=== PATIENT | female | born 1990 | race Caucasian/White ===

== ENCOUNTER 2016-09-08 23:47 | Inpatient (IN) | payer MEDICAID ==
[2016-09-09] MEDS ORDERED: DINOPROSTONE 10 MG VAGINAL INSERT.SR PV PRN (00:02)
[2016-09-09] MEDS ORDERED: RINGERS SOLUTION,LACTATED 1,000 ML IV PRN ×2 (00:30→15:16)
[2016-09-09] MEDS ORDERED: RINGERS SOLUTION,LACTATED 300 ML IV ONE ×2 (00:30→15:16)
[2016-09-09 00:40] LABS: ABSOLUTE EOSINOPHILS # (AUTO) 0.2 10^3/uL (0.0-0.6); ABSOLUTE LYMPHOCYTES (AUTO) 1.7 10^3/uL (0.5-4.7); ABSOLUTE MONOCYTES (AUTO) 0.6 10^3/uL (0.1-1.4); ABSOLUTE NEUT (AUTO) 4.8 10^3/uL (1.7-8.2); BASOPHILS % (AUTO) 0.6 % (0-2); EOSINOPHILS % (AUTO) 2.9 % (0-6); HEMATOCRIT 34.7 % (36.0-47.0); HEMOGLOBIN 11.4 g/dL (12.0-15.5); HGB HCT DIFFERENCE -0.5; LYMPHOCYTES % (AUTO) 23.2 % (13-45); MEAN CORPUSCULAR HEMOGLOBIN 32.2 pg (27.0-33.4); MEAN CORPUSCULAR HGB CONC 32.7 g/dL (32.0-36.0); MEAN CORPUSCULAR VOLUME 98 fl (80-97); MONOCYTES % (AUTO) 8.5 % (3-13); RED BLOOD COUNT 3.54 10^6/uL (3.72-5.28); RED CELL DISTRIBUTION WIDTH 14.1 % (11.5-14.0); SEGMENTED NEUTROPHILS % (AUTO) 64.8 % (42-78); WHITE BLOOD COUNT 7.4 10^3/uL (4.0-10.5)
[2016-09-09 01:15] LABS: APPEARANCE,URINE SLIGHTLY-CLOUDY; BILIRUBIN,URINE NEGATIVE (NEGATIVE); GLUCOSE, URINE NEGATIVE (NEGATIVE); KETONES,URINE NEGATIVE (NEGATIVE); LEUKOCYTE ESTERASE,URINE SMALL (NEGATIVE); NITRITE,URINE NEGATIVE (NEGATIVE); PROTEIN,URINE NEGATIVE (NEGATIVE); URINE SPECIFIC GRAVITY 1.021
[2016-09-09] MEDS ORDERED: DINOPROSTONE 10 MG VAGINAL INSERT.SR ONE (01:26)
[2016-09-09 01:32] LABS: URINE BARBITURATES SCREEN NEGATIVE; URINE METHADONE SCREEN NEGATIVE; URINE OPIATES LOW NEGATIVE; URINE PHENCYCLIDINE SCREEN NEGATIVE
[2016-09-09] MEDS ORDERED: ZOLPIDEM TARTRATE 5 MG TABLET PO ONE (03:01)
[2016-09-09] MEDS ORDERED: ZOLPIDEM TARTRATE 5 MG TABLET ONE (03:58)
[2016-09-09] MEDS ORDERED: PENICILLIN G-K 5 MILLION UNIT VIAL IV SCH (10:00)
[2016-09-09] MEDS ORDERED: OXYTOCIN/NORMAL SALINE 1,000 ML IV PRN ×3 (13:00→19:50)
[2016-09-09] MEDS ORDERED: PENICILLIN G POTASSIUM 5,000,000 UNIT in DEXTROSE 5%-WATER 100 ML IV ONE (13:00)
[2016-09-09] MEDS ORDERED: PENICILLIN G-K 5 MILLION UNIT VIAL ONE ×2 (13:03→18:16)
--- NOTE | 2016-09-09 15:15 | L&D Progress Notes ---
PROGRESS NOTES Datetime Report Generated by CPN: 09/09/2016 15:15 PROGRESS NOTE Impression Other: IOL-progressing Procedures: Sterile Vag Exam Plan: Continue Present Management; Augmentation Informed Consent Obtained: Vaginal Delivery; Induction of Labor; Risks, Benefits and Alternatives Discussed Vital Signs : Reviewed; Within Normal Limits Comment: S: breathing with contractions, desires epidural for pain control O: VSS, cervix as stated, BBOW with head ballotable A: IUP @ 41wga IOL-stable, progressing well P: Continue present management, will augment with pitocin as need, epidural for pain, anticipate VAGINAL EXAM Dilatation: 6 Dilatation: 1 Effacement: 100 Effacement: 25 Station: -1 Station: -3 Contractions: 1.5-4 MEMBRANES Pooling: Negative Membranes: Bulging Membranes: Intact FETUS A Monitoring: External US Decelerations: None FHR Category: Category I : 41.0 Estimated Weight (gm): 4000 Presentation: Vertex SIGNATURE SIGNATURE: [id number] Assignment: Lupillo Hylton, DO Signature: with User ID: [email or web address] : with User ID: [email or web address]
[2016-09-09] MEDS ORDERED: EPHEDRINE SULFATE INJ 50 MG/1 ML AMPULE ONE (15:26)
[2016-09-09] MEDS ORDERED: FENTANYL CITRATE INJ/PF 100 MCG/2 ML AMPUL ONE (15:26)
[2016-09-09] MEDS ORDERED: BUPIVACAINE HCL 0.25 % INJ/PF (2.5 MG/1 ML) 30 ML VIAL ONE (15:27)
[2016-09-09] MEDS ORDERED: FENTANYL/BUPIVACAINE/NS/PF 200 MCG/100 ML RTUINJ EPI ONE (15:27)
[2016-09-09] MEDS ORDERED: PHENYLEPHRINE HCL INJ/PF 10 MG/1 ML SDV ONE (15:27)
[2016-09-09] MEDS ORDERED: MISOPROSTOL 0.2 MG TABLET ONE (15:59)
[2016-09-09] MEDS ORDERED: LIDOCAINE 1% INJ-PF (10 MG/ML) 30 ML SDV ONE (15:59)
[2016-09-09] MEDS ORDERED: OXYTOCIN/NORMAL SALINE 20 UNIT/1,000 ML RTUINJ ONE ×2 (15:59→20:59)
[2016-09-09] MEDS ORDERED: PENICILLIN G POTASSIUM 2,500,000 UNIT in DEXTROSE 5%-WATER 50 ML IV SCH (17:00)
[2016-09-09] MEDS ORDERED: ZOLPIDEM TARTRATE 5 MG TABLET PO PRN (19:50)
[2016-09-09] MEDS ORDERED: BENZOCAINE/MENTHOL AEROSOL SPRAY 56 ML TOP PRN (19:50)
[2016-09-09] MEDS ORDERED: MEASLES,MUMPS&RUBELLA VACC/PF 0.5 ML VIAL SUBCUT PRN (19:50)
[2016-09-09] MEDS ORDERED: DIBUCAINE 1% OINTMENT 28 GM TP PRN (19:50)
[2016-09-09] MEDS ORDERED: DIPH/PERTUSS(ACELL)/TETANUS VAC/PF 0.5 ML SYR (>=10YO) IM PRN (19:50)
[2016-09-09] MEDS ORDERED: ACETAMINOPHEN WITH CODEINE #3 TABLET PO PRN ×2 (19:50)
[2016-09-09] MEDS ORDERED: METHYLERGONOVINE MALEATE INJ/PF 0.2 MG/1 ML AMPULE IV ONE (20:54)
[2016-09-09] MEDS ORDERED: METHYLERGONOVINE MALEATE INJ/PF 0.2 MG/1 ML AMPULE ONE (20:59)
--- NOTE | 2016-09-09 21:14 | Delivery Summary ---
Del Sum A-C Datetime Report Generated by CPN: 09/09/2016 21:13 DELIVERY PERSONNEL DELIVERY PERSONNEL: [id number] Delivery Doctor:: Radha Perry CNM Labor and Delivery Nurse:: Cornelia Frank RNparalegal specialist Nurse:: FAITH Mauro Tech/AGENT PRODUCER: Julienne Cr CNA MATERNAL INFORMATION Delivery Anesthesia: Epidural Medications After Delivery: Pitocin Drip 20 Units/1000ml NSS Estimated Blood Loss (ml): 250 Maternal Complications: None Provider Comments: of viable female infant over intact perineum. Head delivered without difficulty, loose nuchal X1, easily reduced, shoulders and body delivered with ease. Infant with spontaneous cry and respirations to maternal abodmen, cord clamped X2 afer 2.5 min delay. Infant cut free by pt's signficant other. Spontaneous delivery of placenta via juarez mechanism, appears intact, 3VC. Hemostasis acheived with external fundal massage and IV pitocin. Vagina and perineum inspected, no lacerations noted. Mother and infant in stable condition routine pp care. LABOR SUMMARY EDC: 09/02/2016 00:00 No. Babies in Womb: 1 Attempted: No Labor Anesthesia: Epidural LABOR INFORMATION Reason for Induction: Post Dates Onset of Labor: 09/09/2016 13:30 Complete Dilatation: 09/09/2016 19:18 Cervical Ripening Agents: Cervidil (Annotations: 10mg placed in posterior fornix ) Oxytocin: Induction Group B Beta Strep: positive Antibiotics # of Doses: 2 Antibiotics Time of Last Dose: 1822 Name of Antibiotic Given: PENICILLIN G Steroids Given: None Reason Steroids Not Administered: Not Applicable MEMBRANES Membranes Rupture Method: Artificial Rupture of Membranes: 09/09/2016 16:51 Length of Rupture (hr): 2.78 Amniotic Fluid Color: Clear Amniotic Fluid Amount: Moderate Amniotic Fluid Odor: None STAGES OF LABOR Stage 1 hr: 5 Stage 1 min: 48 Stage 2 hr: 0 Stage 2 min: 20 Stage 3 hr: 0 Stage 3 min: 4 Total Time in Labor hr: 6 Total Time in Labor min: 12 VAGINAL DELIVERY Episiotomy: None Laceration Extension: N/A Laceration Type: None Laceration Repair: Not Applicable Laceration Repair Note: n/a Sponge Count Correct: N/A Sharps Count Correct: N/A CSECTION DELIVERY Primary Indication: N/A Secondary Indication: N/A CSection Incidence: N/A Labor: N/A Elective: N/A CSection Incision: N/A BABY A INFORMATION Delivery Date/Time: 09/09/2016 19:38 Method of Delivery: Vaginal Born in Route : No : N/A Forceps: N/A Vacuum Extraction: N/A Shoulder Dystocia : No PRESENTATION/POSITION BABY A Presentation: Cephalic Cephalic Presentation: Vertex Breech Presentation: N/A PLACENTA INFORMATION BABY A Placenta Delivery Time : 09/09/2016 19:42 Placenta Method of Delivery: Spontaneous Placenta Status: Delivered SCORES BABY A Heart Rate 1 min: >100 bpm Resp Effort 1 min: Good Cry Reflex Irritability 1 min: Cough or Sneeze or Pulls Away Muscle Tone 1 min: Active Motion Color 1 min: Body [place], Extremities Blue Resuscitation Effort 1 min: Tactile Stimulation SCORE 1 MIN: 9 Heart Rate 5 min: >100 bpm Resp Effort 5 min: Good Cry Reflex Irritability 5 min: Cough or Sneeze or Pulls Away Muscle Tone 5 min: Active Motion Color 5 min: Body [place], Extremities Blue Resuscitation Effort 5 min: Tactile Stimulation SCORE 5 MIN: 9 INFORMATION BABY A Gestational Age at Delivery: 41.0 Gestational Status: Late Term- 41- 41.6 Weeks Outcome : Liveborn Condition : Stable Infant Sex: Female IDENTIFICATION BABY A Verification Date/Time: 09/09/2016 19:45 ID Band Number: [id number] Mother's Name Verified: Yes Infant RN Verifying Infant: Farhana MurguiaFAITH Additional Verifying Personnel: Jignesh Garcia, /AGENT PRODUCER WEIGHT/LENGTH BABY A Birthweight (gm): 3685 Infant Weight (lb): 8 Weight (oz): 2 Infant Length (in): 21.00 Infant Length (cm): 53.34 CORD INFORMATION BABY A No. Cord Vessels: 3 Nuchal Cord : Around Neck x1, Tight Cord Blood Taken: Yes-For Eval (Mom's Blood Type - or O+) Suction: Mouth; Nose ASSESSMENT BABY A Infant Complications: Multiple Variable Decels Physical Findings at Delivery: Within Normal Limits Respirations: Appears Normal Skin to Skin: Yes Skin to Skin Time (min): 45 Marketing Coordinator/ALS Called : No Care By: Delia Leigh RN Transferred To: Remains with Mother BABY B INFORMATION : N/A SIGNATURES Assignment: Lupillo Hylton DO Signature: with User ID: [email or web address] : with User ID: [email or web address]
--- NOTE | 2016-09-09 21:52 | Admission Physical ---
Datetime Report Generated by CPN: 09/09/2016 21:51 CURRENT ADMISSION Chief Complaint: Scheduled Induction of Labor Indication for Induction: Post Dates Admit Plan: Admit to Unit; Initiate Labor Induction Protocol ALLERGIES Medication Allergies: No Medication Allergies: No Known Allergies (09/09/2016) Medication Allergies: No Known Allergies (09/08/2016) Medication Allergies: No Known Allergies (03/30/2015) Latex: No Latex Allergies OBSTETRICAL HISTORY EDC: 09/02/2016 00:00 : 3 Para: 1 Term: 1 : 0 SAB: 1 IAB: 0 Ectopic: 0 Livin Cesareans: 0 VBACs: 0 Multiple Births: 0 Gestational Diabetes: No Rh Sensitization: No Incompetent Cervix: No ROSI: No Infertility: No ART Treatment: No Uterine Anomaly: No IUGR: No Hx Previous C/S: No Macrosomia: No Hx Loss/Stillborn: No PIH: No Hx : No Placenta Previa/Abruption: No Depression/PP Depression: No PTL/PROM: Yes Post Hemorrhage: No Current Procedures: Ultrasound; NST Obstetrical History Comments: g1-2013- SAB around 8 weeks received d_c g2-2015- , male, 8lb 6oz g3-current , late to care, short interval , partial previa that resolved on 08/20, vulvar varicosities, IOL postdates SEE RECORDS Alcohol: No Marijuana : No Cocaine: No Other Illicit Drugs: No Cigarettes: Former Smoker. [id number] MEDICAL HISTORY Diabetes: No Blood Transfusion: No Pulmonary Disease (Asthma, TB): No Breast Disease: No Hypertension: No Autotransfusionist Surgery: No Heart Disease: No Hosp/Surgery: Yes Autoimmune Disorder: No Anesthetic Complications: No Kidney Disease: No Abnormal Pap Smear: No Neuro/Epilepsy: No Psychiatric Disorders: No Other Medical Diseases: No Hepatitis/Liver Disease: No Significant Family History: No Varicosities/Phlebitis: Yes Trauma/Violence : No Thyroid Dysfunction: No Medical History Comments: childbirth x 1, d_c, tonsilectomy, vulvar varicosities, short interval pregnancies INFECTIOUS HISTORY Gonorrhea: No Genital Herpes: No Chlamydia: No Tuberculosis: No Syphilis: No Hepatitis: No HIV/AIDS Exposure: No Rash or Viral Illness: No HPV: No PHYSICAL EXAM General: Normal HEENT: Normal Neurologic: Normal Thyroid: Normal Heart: Normal Lungs: Normal Breast: Normal Back: Normal Abdomen: Normal Genitourinary Exam: Normal Extremities: Normal DTRs: Normal Pelvic Type: Adequate Vital Signs: Reviewed; Within Normal Limits VAGINAL EXAM Dilatation: 6 Dilatation: 1 Effacement: 100 Effacement: 25 Station: -1 Station: -3 Contraction Comments: 1.5-4 MEMBRANES Pooling: Negative Membranes: Bulging Membranes: Intact FETUS A EGA: 41.0 Monitoring: External US FHR- Baseline: 130 Variability: Moderate 6-25bpm Accelerations: 15X15 Decelerations: None FHR Category: Category I Estimated Weight (gm): 4000 Presentation: Vertex PLANS FOR LABOR AND DELIVERY Labor and Delivery: None Pain Management: Medications; Epidural Feeding Preference: Breast Benefit of Breast Feed Discussed: Yes Circumcision: N/A INFORMED CONSENT Informed Consent Obtained: Vaginal Delivery; Induction of Labor; Risks, Benefits and Alternatives Discussed Signature: with User ID: [email or web address]
[2016-09-09] MEDS ORDERED: ONDANSETRON HCL INJ/PF 4 MG/2 ML SDV IV PRN (22:45)
[2016-09-09] MEDS: IBUPROFEN 800 MG TABLET PO SCH (23:26)
[2016-09-10] MEDS: IBUPROFEN 800 MG TABLET PO SCH ×3 (05:40→21:30)
[2016-09-10 08:02] LABS: HEMATOCRIT 33.5 % (36.0-47.0); HEMOGLOBIN 11.4 g/dL (12.0-15.5); HGB HCT DIFFERENCE 0.7; MEAN CORPUSCULAR HEMOGLOBIN 32.9 pg (27.0-33.4); MEAN CORPUSCULAR HGB CONC 33.9 g/dL (32.0-36.0); MEAN CORPUSCULAR VOLUME 97 fl (80-97); RED BLOOD COUNT 3.45 10^6/uL (3.72-5.28); RED CELL DISTRIBUTION WIDTH 14.3 % (11.5-14.0); WHITE BLOOD COUNT 9.6 10^3/uL (4.0-10.5)
--- NOTE | 2016-09-10 09:48 | PDOC PROGRESS REPORT ---
Subjective-OB Subjective: Post Delivery Day: 26 year old. Denies any needs at this time Doing well, eating bkf, baby in room with pt, hsb @ BS, breast feeding, voiding , moderate bleeding Physical Exam (OB) Vital Signs: Temp Pulse Resp BP Pulse Ox 98.2 F 50 L 16 104/58 L 96 09/10/16 07:26 09/10/16 07:26 09/10/16 07:26 09/10/16 07:26 09/10/16 07:26 Intake & Output 09/09/16 09/10/16 09/11/16 06:59 06:59 06:59 Weight 67.25 kg - Lochia Lochia Amount: Small 10-25 ml Lochia Color: Rubra/Red - Abdomen Description: Soft Hernia Present: No Fundal Description: Firm, Midline Fundal Height: u/u - u/2 Objective-Diagnostic Laboratory: 09/10/16 07:17 09/10/16 07:17 WBC 9.6 RBC 3.45 L Hgb 11.4 L Hct 33.5 L MCV 97 MCH 32.9 MCHC 33.9 RDW 14.3 H Plt Count 150 Assessment and Plan(PN) - Assessment and Plan (1) Normal vaginal delivery Is this a current diagnosis for this admission?: Yes (2) GBS (group B Streptococcus carrier), +RV culture, currently Is this a current diagnosis for this admission?: Yes (3) Anemia due to acute blood loss Is this a current diagnosis for this admission?: Yes - Time Spent with Patient Time with patient: Less than 15 minutes Medications reviewed and adjusted accordingly: Yes - Disposition Anticipated Discharge: Home Within: within 24 hours, within 48 hours
[2016-09-10] MEDS: DOCUSATE SODIUM 100 MG CAPSULE PO SCH ×2 (10:21→17:28)
[2016-09-10] MEDS: FERROUS SULFATE 325 MG TABLET PO SCH ×2 (10:21→17:28)
[2016-09-10] MEDS: PRENATAL VITAMIN W-O CA NO5/FE FUMARATE/FA CAPSULE PO SCH (10:21)
[2016-09-10] MEDS: SENNOSIDES/DOCUSATE 8.6-50 MG 1 EACH TABLET PO SCH (10:22)
[2016-09-11] MEDS: IBUPROFEN 800 MG TABLET PO SCH (05:57)
[2016-09-11 08:35] VITALS: BP 106/56
[2016-09-11] MEDS: SENNOSIDES/DOCUSATE 8.6-50 MG 1 EACH TABLET PO SCH (09:08)
[2016-09-11] MEDS: PRENATAL VITAMIN W-O CA NO5/FE FUMARATE/FA CAPSULE PO SCH (09:08)
[2016-09-11] MEDS: FERROUS SULFATE 325 MG TABLET PO SCH (09:08)
[2016-09-11] MEDS: DOCUSATE SODIUM 100 MG CAPSULE PO SCH (09:09)
--- NOTE | 2016-09-11 09:54 | PDOC DISCHARGE SUMMARY ---
Final Diagnosis Discharge Date: 09/11/16 - Final Diagnosis (1) Anemia due to acute blood loss Is this a current diagnosis for this admission?: Yes (2) Normal vaginal delivery Is this a current diagnosis for this admission?: Yes Discharge Data - Discharge Medication Home Medications: Pnv with Ca,No.72/Iron/FA [Pnv Plus Multivit Tab] 1 each PO DAILY 03/30 Docusate Sodium [Colace 100 mg Capsule] 100 mg PO BID #60 capsule 09/11/16 Ferrous Sulfate [Feosol 325 mg Tablet] 325 mg PO BID #60 tablet 09/11/16 Ibuprofen [Motrin 800 mg Tablet] 800 mg PO Q8 #60 tablet 09/11/16 Gestational Age: 41.0 Reason(s) for Admission: Induction of Labor Intrapartum Procedure(s): Spontaneous Vaginal Delivery - [place] Data Baby 1 Female at 1 minute: 9 at 5 minutes: 9 Weight: 3685 kg Home with Mother: Yes Complications: No - Diagnosis Test Laboratory: Temp Pulse Resp BP Pulse Ox 97.8 F 65 16 106/56 L 99 09/11/16 07:41 09/11/16 07:41 09/11/16 07:41 09/11/16 07:41 09/11/16 07:41 09/09/16 09/09/16 09/10/16 00:20 00:40 07:17 RBC 3.54 L 3.45 L Hgb 11.4 L 11.4 L Hct 34.7 L 33.5 L Urine Opiates Screen NEGATIVE - Discharge information/Instructions Discharge Activity: Activity As Tolerated, Balance Activity w/Rest, Pelvic Rest , No tub bath Discharge Diet: Regular Disposition: HOME, SELF-CARE Follow up with: [facility] in: 4, Weeks
== END 2016-09-11 11:59 | disposition home or self-care (01) | DRG 775 ==
LOC: LR 23:47 → 2N 09-09 21:48
PROVIDERS: ADMIT Obstetrics & Gynecology; ATTEND Obstetrics & Gynecology
PROC: 4A1HXCZ Monitoring of Products of Conception, Cardiac Rate, External Approach (ICD-10-PCS; 2016-09-08)
PROC: 10E0XZZ Delivery of Products of Conception, External Approach (ICD-10-PCS; principal; 2016-09-09)
PROC: 3E033VJ Introduction of Other Hormone into Peripheral Vein, Percutaneous Approach (ICD-10-PCS; 2016-09-09)
PROC: 10907ZC Drainage of Amniotic Fluid, Therapeutic from Products of Conception, Via Natural or Artificial Opening (ICD-10-PCS; 2016-09-09)
DX: O48.0 Post-term pregnancy (principal); D62 Acute posthemorrhagic anemia; O99.824 Streptococcus B carrier state complicating childbirth; O99.02 Anemia complicating childbirth; O69.1XX0 Labor and delivery complicated by cord around neck, with compression, not applicable or unspecified; O76 Abnormality in fetal heart rate and rhythm complicating labor and delivery; Z87.891 Personal history of nicotine dependence; Z3A.41 41 weeks gestation of pregnancy; Z37.0 Single live birth
CPT/HCPCS: 36415; 80307; 81005; 85025; 85027; 86592; 86850; 86900; 86901; J2210; J2370; J2405; J2540; J2590; J3010; J3490

== ENCOUNTER 2017-04-29 13:56 | Emergency (ER) | payer MEDICAID ==
[2017-04-29] MEDS ORDERED: ACETAMINOPHEN 325 MG TABLET PO ONE (14:23)
[2017-04-29] MEDS ORDERED: CLINDAMYCIN HCL 150 MG CAPSULE PO ONE (14:23)
--- NOTE | 2017-04-29 14:28 | ER Document Report ---
HPI - HPI Patient complains to provider of: Dental pain Onset: Other - 2 weeks Onset/Duration: Worse Quality of pain: Achy Pain Level: 3 Context: Patient complains of dental pain to right lower jaw for the past 2 weeks. Patient states she has had a area that is been tender and swollen that is increased in size but is very firm. Patient denies any fever. Associated Symptoms: Other - Dental pain. denies: Fever Exacerbated by: Denies Relieved by: Denies Similar symptoms previously: Yes Recently seen / treated by doctor: No - ROS ROS below otherwise negative: Yes Systems Reviewed and Negative: Yes All other systems reviewed and negative - CONSTITUTIONAL Constitutional: DENIES: Fever - GASTROINTESTINAL Gastrointestinal: DENIES: Nausea, Patient vomiting - MUSCULOSKELETAL Musculoskeletal: DENIES: Back Pain, Neck Pain - DERM Skin Color: Normal Past Medical History - General Information source: Patient - Social History Smoking Status: Never Smoker Frequency of alcohol use: None Drug Abuse: None Occupation: None Family History: Reviewed & Not Pertinent - Medical History Medical History: Negative Surgical Hx: Negative Vertical Provider Document - CONSTITUTIONAL Agree With Documented VS: Yes Exam Limitations: No Limitations General Appearance: WD/WN, No Apparent Distress - INFECTION CONTROL TRAVEL OUTSIDE OF THE [place] IN LAST 30 DAYS: No - HEENT HEENT: Atraumatic, Normocephalic. negative: Pharyngeal Exudate, Pharyngeal Tenderness, Pharyngeal Erythema, Tympanic Membrane Red, Tympanic Membrane Bulging Mouth Diagram: 1 - Dental decay, fracture 2 - Tender indurated area, no fluctuance Notes: No sublingual or submental swelling. No trismus. - NECK Neck: Normal Inspection, Supple. negative: Lymphadenopathy-Left, Lymphadenopathy-Right - RESPIRATORY Respiratory: Breath Sounds Normal, No Respiratory Distress O2 Sat by Pulse Oximetry: 100 - CARDIOVASCULAR Cardiovascular: Regular Rate, Regular Rhythm - BACK Back: Normal Inspection - MUSCULOSKELETAL/EXTREMETIES Musculoskeletal/Extremeties: MAEW - NEURO Level of Consciousness: Awake, Alert, Appropriate Motor/Sensory: No Motor Deficit - DERM Integumentary: Warm, Dry, No Rash Course - Re-evaluation Re-evalutation: 04/29/17 14:25 Antral substance database reviewed. Patient encouraged to follow-up with dental provider for further evaluation. Patient advised that this could be some type of mass and will need evaluation by a dentist. Will treat for possible developing abscess at this time. - Vital Signs Vital signs: Temp Pulse Resp BP Pulse Ox 98.5 F 76 17 111/67 100 04/29/17 14:02 04/29/17 14:02 04/29/17 14:02 04/29/17 14:02 04/29/17 14:02 Discharge - Discharge Clinical Impression: Infected dental caries, Mass of oral cavity Condition: Stable Disposition: HOME, SELF-CARE Instructions: Clindamycin ([facility]), Dental Infection or Abscess ([facility]), Growth or Mass, Pending Workup ([facility]), Oral Narcotic Medication ([facility]), Toothache ([facility]) Additional Instructions: Return immediately for any new or worsening symptoms Followup with your primary care provider, call tomorrow to make a followup appointment Follow-up with a dental care provider for further evaluation of oral lesion, all today to make follow-up appointment. Prescriptions: Clindamycin HCl [Cleocin 300 mg Capsule] 300 mg PO TID #21 capsule Hydrocodone/Acetaminophen [[place] 5-325 Tablet] 1 each PO Q6 PRN #15 tablet PRN Reason: Naproxen [Naprosyn 250 Nmg Tablet] 1 tab PO BID #14 tablet Referrals: [facility] [Provider Group] - Follow up tomorrow
[2017-04-29 15:42] VITALS: BP 108/61
== END 2017-04-29 15:42 | disposition home or self-care (01) ==
LOC: ER 13:56
DX: K02.9 Dental caries, unspecified (principal); R22.0 Localized swelling, mass and lump, head; K08.89 Other specified disorders of teeth and supporting structures
CPT/HCPCS: 99282; J3490 ×2

== ENCOUNTER 2017-06-26 09:24 | Emergency (ER) | payer SELFPAY ==
[2017-06-26] MEDS ORDERED: PENICILLIN V POTASSIUM 500 MG TABLET PO ONE (10:17)
--- NOTE | 2017-06-26 10:23 | ER Document Report ---
ED Oral Problem - General Chief Complaint: Toothache Stated Complaint: LEFT SIDE FACE PAIN Time Seen by Provider: 06/26/17 09:34 Mode of Arrival: Ambulatory Information source: Patient TRAVEL OUTSIDE OF THE [place] IN LAST 30 DAYS: No - HPI Patient complains to provider of: Swelling of jaw, Toothache Notes: Patient is here with complaints of left lower dental pain with jaw swelling. She states that the tooth started hurting yesterday, she woke up this morning with swelling. No difficulty breathing or swallowing. No fever. No nausea, vomiting, diarrhea. She denies any chronic medical problems. He is on no daily medications. She denies any chest pain or shortness of breath. No abdominal pain. No rash. No headache. Pain is worse with touching the area, nothing seems to make it better. She took some ibuprofen earlier this morning. She denies any other complaints at this time. - Related Data Allergies/Adverse Reactions: No Known Allergies Allergy (Verified 04/29/17 13:56) Past Medical History - Social History Smoking Status: Former Smoker Chew tobacco use (# tins/day): No Frequency of alcohol use: None Drug Abuse: None Family History: Reviewed & Not Pertinent Patient has suicidal ideation: No Patient has homicidal ideation: No Renal/ Medical History: Denies: Hx Peritoneal Dialysis Past Surgical History: Reports: Hx Tonsillectomy Review of Systems - Review of Systems -: Yes All other systems reviewed and negative Physical Exam - Vital signs Vitals: Temp Pulse Resp BP Pulse Ox 98.6 F 69 14 111/58 L 99 06/26/17 09:27 06/26/17 09:27 06/26/17 09:27 06/26/17 09:27 06/26/17 09:27 - Notes Notes: GENERAL: alert, cooperative, nontoxic, no distress. HEAD: normocephalic, atraumatic EYES: conjunctiva pink without discharge, no external redness or swelling. EARS: no external swelling, no external redness NOSE: atraumatic, no external swelling MOUTH/THROAT: mucous membranes moist and pink. Widespread dental decay. Significant dental decay to the left lower first and second molars. No drainable abscess identified. There is no sublingual swelling or induration. Patient is noted to have some swelling to the left jaw. Did not palpate a drainable abscess at this time. No trismus or drooling. Airway is patent. No stridor. NECK: soft, supple, full range of motion, no meningismus. CHEST: no distress, lungs clear and equal throughout. No wheezing, rales, rhonchi. CARDIAC: regular rate and rhythm, no murmur, normal capillary refill, normal pulses. BACK: full range of motion, no CVA tenderness. EXTREMITIES: full range of motion of all extremities. No redness, no swelling. NEURO: alert and oriented 3, no focal deficits, full range of motion of all extremities. PYSCH: appropriate mood, affect. Patient is cooperative. SKIN: pink, warm, dry, no rash. Course - Re-evaluation Re-evalutation: 06/26/17 10:20 Patient is nontoxic appearing with stable vitals. She is here with complaints of left dental pain and jaw swelling. She is noted to have significant dental decay to her first and second molar with swelling to the left jaw. There is no facial cellulitis. There is no sublingual swelling or induration and no sign of Driss's angina. Airway is patent. Patient is nontoxic appearing. I do not palpate a drainable abscess at this time. Patient will be given a dose of Pen-Vee K in the emergency department will be discharged home with Pen-Vee K and a very small supply of Unity. She was instructed to continue taking her ibuprofen. Apply warm compresses. She has had an appointment with her dentist scheduled for tomorrow. She is instructed to keep that appointment. She should follow-up sooner if she develops worsening pain, fever, swelling, difficulty breathing or swelling, persistent vomiting, or has any further concerns. The patient's emergency department workup and current diagnosis were explained to the patient and or family. Follow-up instructions were provided. Medications if prescribed were discussed. Instructions for when to return to the emergency department including specific worrisome symptoms were discussed with the patient and/or family. - Vital Signs Vital signs: Temp Pulse Resp BP Pulse Ox 98.6 F 69 14 111/58 L 99 06/26/17 09:27 06/26/17 09:27 06/26/17 09:27 06/26/17 09:27 06/26/17 09:27 Discharge - Discharge Clinical Impression: Dental abscess Condition: Stable Disposition: HOME, SELF-CARE Instructions: Abscess ([facility]), Penicillin V K ([facility]), Toothache ([facility]), [facility], Dentist, Dental Infection or Abscess ([facility]) Additional Instructions: Take medications as prescribed. Apply warm compresses. Follow-up with your dentist as scheduled tomorrow. Follow-up sooner for worsening pain, fever, difficulty breathing or swallowing, persistent vomiting, or for any further concerns. The medication you were prescribed today may cause drowsiness. Do not drive or operate heavy machinery while taking this medication. Prescriptions: Hydrocodone/Acetaminophen [[place] 5-325 mg Tablet] 2 tab PO Q6H PRN #8 tab PRN Reason: Penicillin V Potassium [Penicillin Vk 500 mg Tablet] 500 mg PO QID #40 tablet Forms: Smoking Cessation Education Referrals: [facility] [Provider Group] - Follow up as needed
[2017-06-26 10:34] VITALS: BP 105/76
== END 2017-06-26 10:35 | disposition home or self-care (01) ==
LOC: ER 09:24
DX: K04.7 Periapical abscess without sinus (principal); K08.89 Other specified disorders of teeth and supporting structures; R22.0 Localized swelling, mass and lump, head; Z87.891 Personal history of nicotine dependence
CPT/HCPCS: 99282

== ENCOUNTER 2017-10-23 11:54 | Emergency (ER) | payer SELFPAY ==
[2017-10-23 11:59] VITALS: BP 114/73
[2017-10-23] MEDS ORDERED: CLINDAMYCIN HCL 150 MG CAPSULE PO ONE (12:11)
[2017-10-23] MEDS ORDERED: OXYCODONE-ACETAMINOPHEN 5-325 MG TABLET PO ONE (12:11)
--- NOTE | 2017-10-23 12:14 | ER Document Report ---
HPI - HPI Patient complains to provider of: Dental infection Onset: Other - 2 days Onset/Duration: Worse Quality of pain: Achy Pain Level: 3 Context: Patient presents complaining of dental pain for the past week with facial swelling to the right lower jaw that started over the past 2 days. Patient denies any fever. Associated Symptoms: Other - Dental infection. denies: Fever Exacerbated by: Denies Relieved by: Denies Similar symptoms previously: No Recently seen / treated by doctor: No - ROS ROS below otherwise negative: Yes Systems Reviewed and Negative: Yes All other systems reviewed and negative - CONSTITUTIONAL Constitutional: DENIES: Fever - EENT Notes: Dental infection, toothache - RESPIRATORY Respiratory: DENIES: Trouble Breathing - GASTROINTESTINAL Gastrointestinal: DENIES: Nausea, Patient vomiting - MUSCULOSKELETAL Musculoskeletal: DENIES: Neck Pain - DERM Skin Color: Normal Skin Problems: None Past Medical History - General Information source: Patient - Social History Smoking Status: Never Smoker Frequency of alcohol use: None Drug Abuse: None Occupation: operation manager Family History: Reviewed & Not Pertinent - Medical History Medical History: Negative Renal/ Medical History: Denies: Hx Peritoneal Dialysis Past Surgical History: Reports: Hx Tonsillectomy Vertical Provider Document - CONSTITUTIONAL Agree With Documented VS: Yes Exam Limitations: No Limitations General Appearance: WD/WN, No Apparent Distress - INFECTION CONTROL TRAVEL OUTSIDE OF THE [place] IN LAST 30 DAYS: No - HEENT HEENT: Atraumatic, Normocephalic. negative: Pharyngeal Exudate, Pharyngeal Tenderness, Pharyngeal Erythema, Tympanic Membrane Red, Tympanic Membrane Bulging Mouth Diagram: 1 - Dental abscess, area indurated, no obvious fluctuance. Patient with widespread dental decay, no sublingual or submental swelling Notes: Subtle swelling to the right mandible - NECK Neck: Normal Inspection, Supple. negative: Lymphadenopathy-Left, Lymphadenopathy-Right - RESPIRATORY Respiratory: Breath Sounds Normal, No Respiratory Distress - CARDIOVASCULAR Cardiovascular: Regular Rate, Regular Rhythm - BACK Back: Normal Inspection - MUSCULOSKELETAL/EXTREMETIES Musculoskeletal/Extremeties: MAEW - NEURO Level of Consciousness: Awake, Alert, Appropriate Motor/Sensory: No Motor Deficit - DERM Integumentary: Warm, Dry Course - Re-evaluation Re-evalutation: 10/23/17 Attempted aspiration incision of possible developing abscess to right lower jaw with needle. Only bloody drainage aspirated, patient tolerated procedure well. - Vital Signs Vital signs: Temp Pulse Resp BP Pulse Ox 97.8 F 84 20 114/73 100 10/23/17 11:58 10/23/17 11:58 10/23/17 11:58 10/23/17 11:58 10/23/17 11:58 Procedures - Incision and Drainage Right Face Type: Simple Incision Method: Incision made with needle Amount/type of drainage: small amount of bloody drainage Discharge - Discharge Clinical Impression: Infected dental caries Condition: Stable Disposition: HOME, SELF-CARE Instructions: Clindamycin ([facility]), Dentist, Dental Infection or Abscess ([facility]) Additional Instructions: Return immediately for any new or worsening symptoms Followup with your primary care provider, call tomorrow to make a followup appointment Follow-up with a dental care provider Prescriptions: Acetaminophen with Codeine [Acetaminophen-Cod #3 Tablet] 1 each PO Q6 PRN #12 tablet PRN Reason: Clindamycin HCl [Cleocin 300 mg Capsule] 300 mg PO TID #21 capsule Naproxen [Naprosyn 250 Nmg Tablet] 1 tab PO BID #14 tablet Forms: Return to Work Referrals: LILIA ANN MD [ACTIVE STAFF] - Follow up as needed [facility] [Provider Group] - Follow up as needed
[2017-10-23] MEDS ORDERED: CLINDAMYCIN HCL 150 MG CAPSULE ONE (12:22)
[2017-10-23] MEDS ORDERED: ACETAMINOPHEN WITH CODEINE #3 TABLET ONE (12:24)
[2017-10-23] MEDS ORDERED: OXYCODONE-ACETAMINOPHEN 5-325 MG TABLET ONE (12:29)
== END 2017-10-23 12:39 | disposition home or self-care (01) ==
LOC: ER 11:54
DX: K04.7 Periapical abscess without sinus (principal); K02.9 Dental caries, unspecified; K08.89 Other specified disorders of teeth and supporting structures
CPT/HCPCS: 99283

== ENCOUNTER 2017-10-24 21:16 | Emergency (ER) | payer SELFPAY ==
[2017-10-24] MEDS ORDERED: AMOXICILLIN TR/POT CLAVULANATE 500-125 MG TAB PO ONE (23:57)
[2017-10-24] MEDS ORDERED: BUPIVACAINE HCL 0.5 % INJ/PF 30 ML SDV INJ ONE (23:58)
--- NOTE | 2017-10-25 00:05 | ER Document Report ---
ED Oral Problem - General Chief Complaint: Abscess Stated Complaint: ABSCESS Time Seen by Provider: 10/24/17 23:44 Mode of Arrival: Ambulatory Information source: Patient Notes: 27-year-old female presented ED for dental pain for week and swelling to the right lower jaw last 3-4 days. She states she came into the emergency room on the October and was treated with clindamycin and Tylenol No. 3. She states the pain is gotten worse not better she states that this afternoon around 6:00 she noticed that her face was red and the pain was more increased and she became concerned and came to the emergency room to get checked out. Patient does have mild erythema to the face and arms but no erythema to the chest abdomen back or legs. Patient is alert oriented respirations regular and unlabored speaking in full sentences and walks with a even steady gait. TRAVEL OUTSIDE OF THE [place] IN LAST 30 DAYS: No - HPI Patient complains to provider of: Swelling of face, Swelling of jaw, Toothache Onset: Last week Onset: Gradual Quality of pain: Sharp, Throbbing Severity: Severe Pain Level: 5 Swollen jaw/face: Moderate Associated symptoms: Toothache Relieved by: Nothing Similar symptoms previously: Yes Recently seen / treated by doctor/dentist: Yes - Related Data Allergies/Adverse Reactions: clindamycin Allergy (Verified 10/25/17 00:19) Past Medical History - General Information source: Patient - Social History Smoking Status: Former Smoker Cigarette use (# per day): No Chew tobacco use (# tins/day): No Smoking Education Provided: No Frequency of alcohol use: None Drug Abuse: None Occupation: manager studio Lives with: Spouse/Significant other Family History: Reviewed & Not Pertinent Patient has suicidal ideation: No Patient has homicidal ideation: No - Past Medical History Cardiac Medical History: Reports: Hx Atrial Fibrillation Pulmonary Medical History: Reports: None EENT Medical History: Reports: None Neurological Medical History: Reports: None Endocrine Medical History: Reports: None Renal/ Medical History: Reports: None Malignancy Medical History: Reports: None GI Medical History: Reports: None Musculoskeletal Medical History: Reports None Skin Medical History: Reports None Psychiatric Medical History: Reports: None Traumatic Medical History: Reports: None Infectious Medical History: Reports: None Past Surgical History: Reports: Hx Tonsillectomy - Immunizations Immunizations up to date: Yes Hx Diphtheria, Pertussis, Tetanus Vaccination: Yes Review of Systems - Review of Systems Constitutional: No symptoms reported EENT: Mouth pain, Mouth swelling, Dental problem Cardiovascular: No symptoms reported Respiratory: No symptoms reported Gastrointestinal: No symptoms reported Genitourinary: No symptoms reported Female Genitourinary: No symptoms reported Musculoskeletal: No symptoms reported Skin: No symptoms reported Hematologic/Lymphatic: No symptoms reported Neurological/Psychological: No symptoms reported -: Yes All other systems reviewed and negative Physical Exam - Vital signs Vitals: Temp Pulse Resp BP Pulse Ox 97.9 F 89 20 113/76 99 10/24/17 21:18 10/24/17 21:18 10/24/17 21:18 10/24/17 21:18 10/24/17 21:18 Interpretation: Normal - General General appearance: Appears well, Alert - HEENT Head: Normocephalic, Atraumatic Eyes: Normal Pupils: PERRL Ears: Normal External canal: Normal Tympanic membrane: Normal Sinus: Normal Nasal: Normal Mouth/Lips: Caries Mucous membranes: Normal Teeth diagram: 1 - Dental cavity 2 - Dental abscess between the gums and the cheek with moderate swelling to the face. No swelling the light of the jawline all of at or above the jawline. No signs of Driss's angina. - Respiratory Respiratory status: No respiratory distress Chest status: Nontender Breath sounds: Normal Chest palpation: Normal - Cardiovascular Rhythm: Regular Heart sounds: Normal auscultation Murmur: No - Abdominal Inspection: Normal Distension: No distension Bowel sounds: Normal Tenderness: Nontender Organomegaly: No organomegaly - Back Back: Normal, Nontender - Extremities General upper extremity: Normal inspection, Nontender, Normal color, Normal ROM , Normal temperature General lower extremity: Normal inspection, Nontender, Normal color, Normal ROM , Normal temperature, Normal weight bearing. No: Vijay's sign - Neurological Neuro grossly intact: Yes Cognition: Normal Orientation: AAOx4 [place] Coma Scale Eye Opening: Spontaneous Erik Coma Scale Verbal: Oriented Erik Coma Scale Motor: Obeys Commands Erik Coma Scale Total: 15 Speech: Normal Motor strength normal: LUE, RUE, LLE, RLE Sensory: Normal - Psychological Associated symptoms: Normal affect, Normal mood - Skin Skin Temperature: Warm Skin Moisture: Dry Skin Color: Normal Course - Re-evaluation Re-evalutation: 10/25/17 01:12 Patient was given a dental block with Sensorcaine and then the abscess was anesthetized with Sensorcaine and opened with an 11 blade. 5 cc of purulent pus drained from the abscess when I first opened it. Patient was encouraged to massage the area while gargling with warm water to remove the rest of the purulent drainage. After patient was willing to stop gargling she was treated with Augmentin and Sterling and discharged home with the rest of her Sterling dispense pack and a prescription for Augmentin. Patient was instructed to follow-up with dentist as soon as possible. Patient was discharged home with her significant other. - Vital Signs Vital signs: Temp Pulse Resp BP Pulse Ox 97.9 F 73 18 114/70 100 10/24/17 21:18 10/25/17 00:41 10/25/17 00:41 10/25/17 00:41 10/25/17 00:41 Procedures - Incision and Drainage Right Lower jaw dental abscess Time completed: 00:16 Type: Simple Anesthetic type: 0.5% Bupivacaine mL's of anesthetic: 8 Blade size: 11 Incision Method: Incision made by scalpel Amount/type of drainage: large amount purulent 4-5 cc Discharge - Discharge Clinical Impression: Dental abscess Condition: Stable Disposition: HOME, SELF-CARE Additional Instructions: TOOTHACHE: Your pain is due to dental decay. The tooth must be repaired in order for you to feel better. You will, therefore, be referred to a dentist. We do not have dentists on the staff at [facility]. Severe swelling or drainage around a tooth usually means a dental abscess. This also requires evaluation and treatment by the dentist, but antibiotics may be prescribed while awaiting dental treatment. You should be rechecked immediately if you develop major swelling of the face, increasing pain, a lump in the jaw or gums, headache, difficulty swallowing, or fever. Augmentin Augmentin is a mixture of amoxicillin and clavulanate. Amoxicillin is a member of the penicillin family. It covers the germs likely to cause ear, bronchial, and urinary infections better than plain penicillin. The addition of clavulanate allows it to cover staph infections of the skin, as well as resistant cases of ear and sinus infections. Your physician has chosen Augmentin for you because of the special nature of your situation. Augmentin is best taken with meals. Nausea after taking the medication is rare, but can occur. Diarrhea can occur, particularly in small children. Vaginal yeast infections, and oral thrush in infants are also common. Contact your physician if these problems occur. Allergy to penicillins is common. If you have had an allergic reaction to any drug of the penicillin family, you should never take any other penicillin. Notify your doctor at once if you develop hives, shortness of breath, swelling, or faintness. FOLLOW-UP CARE: You have been referred for follow-up care to the dentists listed below. Call the dentists office for an appointment as you were instructed or within the next two days. If you experience worsening or a significant change in your symptoms, notify the physician immediately or return to the Emergency Department at any time for re-evaluation. [facility] [address] [place], [place] [facility] [address] [place] [address] [facility] [address] [facility] [address] [facility] ([facility]) [facility] [address] [email or web address] [address] [place] [address] Friday- 8:00am to 5:00 pm Will see [facility] from other [facility]. Charges based on income and family size and accepts Medicare, Medicaid, and Insurances Will pull molars [facility] [address] Hours of Operation 8:00 am - 4:30 pm weekdays The following dental offices accept Medicaid: [facility] Dr. Rowe Dr. Connors Dr. Phillips Dr. Richardson Luis Daniel Silva, David, and Geno oral surgery Dr. Farmer ([place]) Dr. Carrillo ([place]) [facility] Drs. Collier ([place]) Dr. Rodriguez ([place]) [facility] Dr. Sun ([place]) Drs. Lima and ([place]) Medicaid Care Line Prescriptions: Amox Tr/Potassium Clavulanate [Augmentin 875-125 Tablet] 1 tab PO BID 10 Days tablet Forms: Return to Work
[2017-10-25] MEDS ORDERED: HYDROCODONE/ACETAMINOPHEN 5-325 MG (6 TAB/ER DISP) PO PRN (00:23)
[2017-10-25 00:42] VITALS: BP 114/70
== END 2017-10-25 00:44 | disposition home or self-care (01) ==
LOC: ER 21:16
PROC: 0C9X0Z0 Drainage of Lower Tooth, Open Approach, Single (ICD-10-PCS; principal; 2017-10-25)
DX: K04.7 Periapical abscess without sinus (principal); K02.9 Dental caries, unspecified; Z87.891 Personal history of nicotine dependence
CPT/HCPCS: 99283; 41800; J3490

== ENCOUNTER 2018-09-23 22:25 | Emergency (ER) | payer SELFPAY ==
[2018-09-23 22:34] VITALS: BP 109/69
--- NOTE | 2018-09-23 22:56 | ER Document Report ---
ED General - General Chief Complaint: Medical Complaint Stated Complaint: FINGER PAIN Time Seen by Provider: 09/23/18 22:48 TRAVEL OUTSIDE OF THE [place] IN LAST 30 DAYS: No - HPI Notes: Patient is a 28-year-old female that presents to the emergency department for chief complaint of ring being stuck on finger. Patient states she has not been able to get the ring off of her left ring finger for the last year. She states tonight she was trying to get it off and had been pinching it with pliers which caused it to become significantly tighter. She states her finger began to turn white and black. She states the color change was there for about 20 minutes prior to having the ring taken off in the emergency room. She does now report numbness in her left ring finger but states the color appears back to normal. Her last tetanus vaccine was within 5 years. Past Medical History: Negative Past Surgical History: Negative Social History: Denies drugs alcohol and tobacco Family History: Reviewed and noncontributory for presenting illness Allergies: Reviewed, see documented allergy list. REVIEW OF SYSTEMS: CONSTITUTIONAL : No fever No chills No diaphoresis No recent illness EENT: No vision changes No congestion No sore throat CARDIOVASCULAR: No chest pain No palpitations RESPIRATORY: No shortness of breath No cough No difficulty breathing GASTROINTESTINAL: No abdominal pain No nausea No vomiting No diarrhea GENITOURINARY: No dysuria No hematuria No difficulty urinating MUSCULOSKELETAL: No back pain No leg pain Finger pain SKIN: No rashes No lesions LYMPHATIC: No swollen, enlarged glands. NEUROLOGICAL: No lightheadedness No headache No weakness No paresthesias PSYCHIATRIC: No anxiety No depression PHYSICAL EXAMINATION: Vital signs reviewed, nursing noted reviewed. GENERAL: Well-appearing, well-nourished and in no acute distress. HEAD: Atraumatic, normocephalic. EYES: Eyes appear normal, extraocular movements intact, sclera anicteric, conjunctiva are normal. ENT: nares patent, oropharynx clear without exudates. Moist mucous membranes. NECK: Normal range of motion, supple without lymphadenopathy LUNGS: Breath sounds clear to auscultation bilaterally and equal. No wheezes rales or rhonchi. HEART: Regular rate and rhythm without murmurs ABDOMEN: Soft, nontender, normoactive bowel sounds. No rebound, guarding, or rigidity. No masses appreciated. EXTREMITIES: Mild edema to left ring finger with normal capillary refill and small abrasion to dorsal surface without bleeding. No deformities. Good range of motion, no pitting or edema. NEUROLOGICAL: No focal neurological deficits. Moves all extremities spontaneously Motor and sensory grossly intact on exam. PSYCH: Normal mood, normal affect. SKIN: Warm, Dry, normal turgor, left ring finger abrasion - Related Data Allergies/Adverse Reactions: clindamycin Allergy (Verified 10/25/17 00:19) Past Medical History - Social History Smoking Status: Unknown if Ever Smoked Family History: Reviewed & Not Pertinent Patient has suicidal ideation: No Patient has homicidal ideation: No - Past Medical History Cardiac Medical History: Reports: Hx Atrial Fibrillation Renal/ Medical History: Denies: Hx Peritoneal Dialysis Past Surgical History: Reports: Hx Tonsillectomy - Immunizations Immunizations up to date: Yes Hx Diphtheria, Pertussis, Tetanus Vaccination: Yes Physical Exam - Vital signs Vitals: Temp Pulse Resp BP Pulse Ox 97.5 F 90 14 109/69 99 09/23/18 22:32 09/23/18 22:32 09/23/18 22:32 09/23/18 22:32 09/23/18 22:32 Course - Re-evaluation Re-evalutation: 09/23/18 22:55 Vitals reviewed. Nursing notes reviewed. Patient showed me a picture of her ring finger after it was clamped down with the pliers and she did have a white dusky finger. On my exam her ring had been removed and her blood flow had been restored. She does have some residual numbness which I anticipate will improve now that the ring is off. Patient has a small abrasion from where she was trying to remove the ring. I counseled her on signs of infection and wound management. Patient did not have any direct trauma to her finger to suggest underlying fracture and has no bony tenderness, x-rays are not currently indicated. Patient's tetanus vaccine is up-to-date. She is stable at discharge. - Vital Signs Vital signs: Temp Pulse Resp BP Pulse Ox 97.5 F 90 14 109/69 99 09/23/18 22:32 09/23/18 22:32 09/23/18 22:32 09/23/18 22:32 09/23/18 22:32 Discharge - Discharge Clinical Impression: Numbness of finger Abrasion of left ring finger Qualifiers: Encounter type: initial encounter Qualified Code(s): S60.415A - Abrasion of left ring finger, initial encounter Condition: Stable Disposition: HOME, SELF-CARE Additional Instructions: Please return to the emergency department if you have any worsening, or concern of your symptoms. Please return to the emergency department if you develop chest pain, difficulty breathing, severe abdominal pain, or ongoing vomiting. Please follow-up with your primary care physician in 2-3 days and any other recommended physicians. If prescribed, take all medications as directed. If you have any questions or concerns do not hesitate to return the emergency department for evaluation. Monitor for signs of infection on your left ring finger. These would be increased swelling, increased pain, increased redness or drainage from the area. If you notice signs of infection you should return to the emergency room or see her primary care provider. Wash your left ring finger abrasion 2-3 times daily with warm soapy water. Referrals: [facility] [Provider Group] - Follow up as needed
== END 2018-09-23 23:01 | disposition home or self-care (01) ==
LOC: ER 22:25
DX: S60.415A Abrasion of left ring finger, initial encounter (principal); S60.445A External constriction of left ring finger, initial encounter; R20.0 Anesthesia of skin; W49.04XA Ring or other jewelry causing external constriction, initial encounter
CPT/HCPCS: 99283

== ENCOUNTER 2019-07-28 10:47 | Outpatient (CLI) | payer MEDICAID ==
--- NOTE | 2019-07-28 11:38 | Non Stress Test Report ---
Non Stress Test Datetime Report Generated by CPN: 07/28/2019 11:37 DEMOGRAPHIC Test Number: 1 EGA NST: 40.5 INDICATION Indication for Study (NST) Other: repeat NST sent from office VITAL SIGNS Temperature - NST: 97.7 Pulse - NST: 79 RESP - NST: 18 NBPSYS NST: 109 NBPDIA NST: 66 MONITORING Monitor Explained: Monitor Explained; Test Explained; Patient Verbalized Understanding Time on Monitor: 07/27/2019 11:03 Time off Monitor: 07/28/2019 11:27 NST Duration: 1464 NST INTERVENTIONS NST Interventions: PO Hydration Physician Notified NST: C. Whitlock, CNM BABY A: [id number] BABY A Movement : Present Contraction Frequency : none FHR Baseline : 130 Accelerations : 15X15 Decelerations : None Variability : Moderate 6-25bpm NST Review: Meets Criteria for Reactive NST NST Review and Verified By : Lawson Lizama RN NST Results: Reactive NST REPORT Report Trigger: Send Report
== END 2019-07-28 11:33 | disposition home or self-care (01) ==
LOC: LC 10:47
PROVIDERS: ATTEND Obstetrics & Gynecology Gynecology
DX: O48.0 Post-term pregnancy (principal); Z3A.40 40 weeks gestation of pregnancy
CPT/HCPCS: 59025

== ENCOUNTER 2019-07-30 20:19 | Outpatient (CLI) | payer MEDICAID ==
[2019-07-30 20:58] LABS: APPEARANCE,URINE SLIGHTLY-CLOUDY; BILIRUBIN,URINE NEGATIVE (NEGATIVE); COLOR,URINE YELLOW; GLUCOSE, URINE NEGATIVE (NEGATIVE); KETONES,URINE NEGATIVE (NEGATIVE); LEUKOCYTE ESTERASE,URINE MODERATE (NEGATIVE); NITRITE,URINE NEGATIVE (NEGATIVE); PROTEIN,URINE NEGATIVE (NEGATIVE); URINE SPECIFIC GRAVITY 1.011
[2019-07-30 21:30] LABS: URINE AMPHETAMINES SCREEN NEGATIVE; URINE BARBITURATES SCREEN NEGATIVE; URINE BENZODIAZEPINES SCREEN NEGATIVE; URINE COCAINE SCREEN NEGATIVE; URINE MARIJUANA (THC) SCREEN NEGATIVE; URINE METHADONE SCREEN NEGATIVE; URINE PHENCYCLIDINE SCREEN NEGATIVE
[2019-07-30 23:41] VITALS: BP 116/61
== END 2019-07-30 23:54 | disposition home or self-care (01) ==
LOC: LC 20:19
PROVIDERS: ATTEND Obstetrics & Gynecology
DX: O48.0 Post-term pregnancy (principal); O09.33 Supervision of pregnancy with insufficient antenatal care, third trimester; Z88.1 Allergy status to other antibiotic agents; Z87.891 Personal history of nicotine dependence; Z3A.41 41 weeks gestation of pregnancy
CPT/HCPCS: 59025; 86900; 86901; 36415; 86850; 81005; 80307; J2790

== ENCOUNTER 2019-08-04 06:05 | Inpatient (IN) | payer MEDICAID ==
[2019-08-04] MEDS ORDERED: PENICILLIN G POTASSIUM 5,000,000 UNIT in DEXTROSE 5%-WATER 100 ML IV ONE (06:14)
[2019-08-04] MEDS ORDERED: RINGERS SOLUTION,LACTATED 1,000 ML IV PRN (06:14)
[2019-08-04] MEDS ORDERED: RINGERS SOLUTION,LACTATED 1,000 ML IV ONE (06:14)
[2019-08-04] MEDS ORDERED: OXYTOCIN/0.9 % SODIUM CHLORIDE 30 UNIT/500 ML RTUINJ IV PRN ×2 (06:14→15:23)
[2019-08-04] MEDS ORDERED: MISOPROSTOL 0.2 MG TABLET ONE (06:50)
[2019-08-04] MEDS ORDERED: OXYTOCIN/0.9 % SODIUM CHLORIDE 30 UNIT/500 ML RTUINJ ONE (06:50)
[2019-08-04] MEDS ORDERED: LIDOCAINE 1% INJ-PF (10 MG/ML) 30 ML SDV ONE (06:50)
[2019-08-04] MEDS ORDERED: OXYTOCIN 10 UNIT/ML VIAL ONE (06:50)
[2019-08-04] MEDS ORDERED: PENICILLIN G-K 5 MILLION UNIT VIAL ONE (06:51)
[2019-08-04 07:35] LABS: ABSOLUTE EOSINOPHILS # (AUTO) 0.2 10^3/uL (0.0-0.6); ABSOLUTE LYMPHOCYTES (AUTO) 2.1 10^3/uL (0.5-4.7); ABSOLUTE MONOCYTES (AUTO) 0.5 10^3/uL (0.1-1.4); ABSOLUTE NEUT (AUTO) 3.5 10^3/uL (1.7-8.2); BASOPHILS % (AUTO) 0.7 % (0-2); EOSINOPHILS % (AUTO) 2.7 % (0-6); HEMATOCRIT 28.5 % (36.0-47.0); HEMOGLOBIN 9.6 g/dL (12.0-15.5); MEAN CORPUSCULAR HGB CONC 33.5 g/dL (32.0-36.0); MEAN CORPUSCULAR VOLUME 83 fl (80-97); MONOCYTES % (AUTO) 7.2 % (3-13); PLATELET COUNT 140 10^3/uL (150-450); RED BLOOD COUNT 3.42 10^6/uL (3.72-5.28); RED CELL DISTRIBUTION WIDTH 16.2 % (11.5-14.0); SEGMENTED NEUTROPHILS % (AUTO) 56.4 % (42-78); TOTAL CELLS COUNTED % (AUTO) 100 %; WHITE BLOOD COUNT 6.2 10^3/uL (4.0-10.5)
[2019-08-04 07:40] LABS: APPEARANCE,URINE CLEAR; BILIRUBIN,URINE NEGATIVE (NEGATIVE); COLOR,URINE YELLOW; GLUCOSE, URINE NEGATIVE (NEGATIVE); KETONES,URINE NEGATIVE (NEGATIVE); LEUKOCYTE ESTERASE,URINE NEGATIVE (NEGATIVE); NITRITE,URINE NEGATIVE (NEGATIVE); PROTEIN,URINE NEGATIVE (NEGATIVE); URINE SPECIFIC GRAVITY 1.009; UROBILINOGEN,URINE NEGATIVE mg/dL (<2.0)
--- NOTE | 2019-08-04 07:42 | Admission Physical ---
Datetime Report Generated by CPN: 08/04/2019 07:41 CURRENT ADMISSION Chief Complaint: Scheduled Induction of Labor Indication for Induction: Post Dates Admit Impression : Term, Intrauterine ; Induction of Labor Admit Plan: Admit to Unit; Initiate Labor Induction Protocol ALLERGIES Medication Allergies: No Medication Allergies: No Known Allergies (08/04/2019) Latex: No Latex Allergies Food Allergies: NKA Environmental Allergies: NKA OBSTETRICAL HISTORY EDC: 07/22/2019 00:00 : 4 Para: 2 Term: 2 : 0 SAB: 1 IAB: 0 Livin Gestational Diabetes: No Rh Sensitization: No Incompetent Cervix: No ROSI: No Infertility: No ART Treatment: No Uterine Anomaly: No IUGR: No Hx Previous C/S: No Macrosomia: No Hx Loss/Stillborn: No PIH: No Hx : No Placenta Previa/Abruption: No Depression/PP Depression: No PTL/PROM: No Post Hemorrhage: No Current Procedures: Ultrasound; NST Obstetrical History Comments: - 2013 8 week SAB w/ D_C G2 - 2015 full term male; no complications; G3 - 2017 full term female; no complications; postdates IOL; G4 - current; no complications; postdates SEE RECORDS Alcohol: No Marijuana : No Cocaine: No Other Illicit Drugs: No Cigarettes: Former Smoker. [id number] MEDICAL HISTORY Diabetes: No Blood Transfusion: No Pulmonary Disease (Asthma, TB): No Breast Disease: No Hypertension: No Appraisal Specialist Surgery: Yes Heart Disease: No Hosp/Surgery: Yes Autoimmune Disorder: No Anesthetic Complications: No Kidney Disease: No Abnormal Pap Smear: No Neuro/Epilepsy: No Psychiatric Disorders: No Other Medical Diseases: No Hepatitis/Liver Disease: No Significant Family History: Yes Varicosities/Phlebitis: No Trauma/Violence : No Thyroid Dysfunction: No Medical History Comments: D_C in 2013, tonsillectomy age 9, childbirth x 2; maternal family hx of DM INFECTIOUS HISTORY Gonorrhea: No Genital Herpes: No Chlamydia: No Tuberculosis: No Syphilis: No Hepatitis: No HIV/AIDS Exposure: No Rash or Viral Illness: No HPV: No PHYSICAL EXAM General: Normal HEENT: Normal Neurologic: Normal Thyroid: Normal Heart: Normal Lungs: Normal Breast: Normal Back: Normal Abdomen: Normal Genitourinary Exam: Normal Extremities: Normal DTRs: Normal Pelvic Type: Adequate Vital Signs: Reviewed VAGINAL EXAM Dilatation: 3 Effacement: 50 MEMBRANES Pooling: Negative Membranes: Intact FETUS A EGA: 41.6 Monitoring: External US FHR- Baseline: 120 Variability: Moderate 6-25bpm Accelerations: 15X15 Decelerations: None FHR Category: Category I Estimated Weight (gm): 3700 Presentation: Vertex PLANS FOR LABOR AND DELIVERY Labor and Delivery: None Pain Management: Epidural Feeding Preference: Breast Benefit of Breast Feed Discussed: Yes Circumcision: No INFORMED CONSENT Signature: with User ID: [email or web address]
[2019-08-04 07:59] LABS: URINE AMPHETAMINES SCREEN NEGATIVE; URINE BARBITURATES SCREEN NEGATIVE; URINE BENZODIAZEPINES SCREEN NEGATIVE; URINE COCAINE SCREEN NEGATIVE; URINE MARIJUANA (THC) SCREEN NEGATIVE; URINE METHADONE SCREEN NEGATIVE; URINE PHENCYCLIDINE SCREEN NEGATIVE
[2019-08-04] MEDS: PENICILLIN G POTASSIUM 2,500,000 UNIT in DEXTROSE 5%-WATER 50 ML IV SCH ×2 (10:51→16:22)
[2019-08-04] MEDS ORDERED: FENTANYL/BUPIVACAINE/NS/PF 300 MCG/150 ML RTUINJ EPI ONE (12:07)
[2019-08-04] MEDS ORDERED: BUPIVACAINE HCL 0.25 % INJ/PF (2.5 MG/1 ML) 30 ML VIAL ONE (12:07)
[2019-08-04] MEDS ORDERED: EPHEDRINE SULFATE INJ 50 MG/1 ML AMPULE ONE (12:07)
[2019-08-04] MEDS ORDERED: DIPHENHYDRAMINE HCL 25 MG CAPSULE PO PRN (15:23)
[2019-08-04] MEDS ORDERED: ACETAMINOPHEN 325 MG TABLET PO PRN (15:23)
[2019-08-04] MEDS ORDERED: BENZOCAINE/MENTHOL AEROSOL SPRAY 56 ML TOP PRN (15:23)
[2019-08-04] MEDS ORDERED: PROMETHAZINE HCL INJ 25 MG/1 ML VIAL IV PRN (15:23)
[2019-08-04] MEDS ORDERED: PROMETHAZINE HCL 25 MG SUPP.RECT PR PRN (15:23)
[2019-08-04] MEDS ORDERED: MEASLES,MUMPS&RUBELLA VACC/PF 0.5 ML VIAL SUBCUT PRN (15:23)
[2019-08-04] MEDS ORDERED: PROMETHAZINE HCL 25 MG TABLET PO PRN (15:23)
[2019-08-04] MEDS ORDERED: NA PHOS,M-B/NA PHOS,DI-BA (ADULT) 133 ML ENEMA PR PRN (15:23)
[2019-08-04] MEDS ORDERED: PSEUDOEPHEDRINE HCL 30 MG TABLET PO PRN (15:23)
[2019-08-04] MEDS ORDERED: DIBUCAINE 1% OINTMENT 28 GM TP PRN (15:23)
[2019-08-04] MEDS ORDERED: MAGNESIUM HYDROXIDE SUSP 30 ML UDCUP PO PRN (15:23)
[2019-08-04] MEDS ORDERED: DIPH/PERTUSS(ACELL)/TETANUS VAC/PF 0.5 ML SYR (>=10YO) IM PRN (15:23)
[2019-08-04] MEDS ORDERED: GLYCERIN/WITCH HAZEL LEAF 1 EACH MED..WIPE TP PRN (15:23)
--- NOTE | 2019-08-04 15:57 | Delivery Summary ---
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 Certified:: Rose Whitlock CNM Labor and Delivery Nurse:: Martha Wynn RNcoater operator Nurse:: Deann ChrissieREYNA rae [employer] Report Developer/AUDIT OFFICER: Constantin Carter, APPLIED ANTHROPOLOGIST MATERNAL INFORMATION Delivery Anesthesia: Epidural Medications After Delivery: Pitocin Bolus-Please Comment; Pitocin 30 Units in 500ml NS/D5W Meds After Delivery Comment: Pitocin 30 units in 500 ml NS Delivery QBL: 25 Delivery QBL Comment: 30 Maternal Complications: None Provider Comments: pt progressed to c/c/1 with urge to push, began pushing and with much coaching went on to deliver a viable baby boy. Head delivered in TED position then restituted to SIMRAN with tight nuchal, unable to reduce nuchal and delivered thru then reduced and baby placed on maternal abdomen skin to skin. Cord allowed to stop pulsating then clamped x2 and cut by FOB (3vc noted, cord blood collected). Placenta delivered spontaneously intact, fundus firm @ u-2, scant bleeding. Vaginal and perineal inspection revealed no lacerations. Mother and baby remain stable at this time LABOR SUMMARY EDC: 07/22/2019 00:00 No. Babies in Womb: 1 Attempted: No Labor Anesthesia: Epidural LABOR INFORMATION Reason for Induction: Post Dates Onset of Labor: 08/04/2019 10:30 Complete Dilatation: 08/04/2019 13:49 Oxytocin: Induction Group B Beta Strep: positive Antibiotics # of Doses: 2 Antibiotics Time of Last Dose: 1100 Name of Antibiotic Given: Penicillin G Steroids Given: None Reason Steroids Not Administered: Not Applicable Other Reason Not Administered: n/a MEMBRANES Membranes Rupture Method: Artificial Rupture of Membranes: 08/04/2019 12:30 Length of Rupture (hr): 2.02 Amniotic Fluid Color: Light Meconium Amniotic Fluid Amount: Moderate Amniotic Fluid Odor: Normal STAGES OF LABOR Stage 1 hr: 3 Stage 1 min: 19 Stage 2 hr: 0 Stage 2 min: 42 Stage 3 hr: 0 Stage 3 min: 5 Total Time in Labor hr: 4 Total Time in Labor min: 6 VAGINAL DELIVERY Episiotomy: None Laceration #1: None Laceration Extension #1: N/A Laceration #2: None Laceration Repair: Not Applicable Sponge Count Correct: N/A Sharps Count Correct: N/A BABY A INFORMATION Infant Delivery Date/Time: 08/04/2019 14:31 Method of Delivery: Vaginal Born in Route : No : N/A Forceps: N/A Vacuum Extraction: N/A Shoulder Dystocia : No PRESENTATION/POSITION BABY A Presentation: Cephalic Cephalic Presentation: Vertex Vertex Position: Right Occipital Anterior Breech Presentation: N/A (Annotations: Data stored by [facility] on behalf of user) PLACENTA INFORMATION BABY A Placenta Delivery Time : 08/04/2019 14:36 Placenta Method of Delivery: Spontaneous Placenta Status: Delivered SCORES BABY A Heart Rate 1 min: >100 bpm Resp Effort 1 min: Good Cry Reflex Irritability 1 min: Cough or Sneeze or Pulls Away Muscle Tone 1 min: Active Motion Color 1 min: Blue/Pale Resuscitation Effort 1 min: Tactile Stimulation SCORE 1 MIN: 8 Heart Rate 5 min: >100 bpm Resp Effort 5 min: Good Cry Reflex Irritability 5 min: Cough or Sneeze or Pulls Away Muscle Tone 5 min: Active Motion Color 5 min: Body [place], Extremities Blue Resuscitation Effort 5 min: Tactile Stimulation SCORE 5 MIN: 9 INFANT INFORMATION BABY A Gestational Age at Delivery: 41.6 Gestational Status: Late Term- 41- 41.6 Weeks Outcome : Liveborn Infant Condition : Stable Sex: Male IDENTIFICATION BABY A Infant Verification Date/Time: 08/04/2019 14:56 ID Band Number: [id number] Mother's Name Verified: Yes RN Verifying : Mateo, RN and M. Juan R, RN WEIGHT/LENGTH BABY A Infant Birthweight (gm): 4170 Infant Weight (lb): 9 Infant Weight (oz): 3 Length (in): 20.00 Infant Length (cm): 50.80 CORD INFORMATION BABY A No. Cord Vessels: 3 Nuchal Cord : Around Neck x1, Tight Cord Blood Taken: Yes-For Eval (Mom's Blood Type - or O+) Infant Suction: None ASSESSMENT BABY A Skin to Skin: Yes Skin to Skin Time (min): 55 BABY B INFORMATION : N/A SIGNATURES Assignment: Gale Goins MD Signature: with User ID: [email or web address] : with User ID: [email or web address]
[2019-08-04] MEDS ORDERED: IBUPROFEN 800 MG TABLET ONE (16:04)
[2019-08-04] MEDS: IBUPROFEN 800 MG TABLET PO SCH ×2 (16:06→21:23)
[2019-08-04] MEDS: DOCUSATE SODIUM 100 MG CAPSULE PO SCH (18:05)
[2019-08-04] MEDS: FERROUS SULFATE 325 MG TABLET PO SCH (18:05)
[2019-08-04] MEDS: FAMOTIDINE 20 MG TABLET PO SCH (21:23)
[2019-08-05] MEDS: IBUPROFEN 800 MG TABLET PO SCH ×3 (05:31→21:19)
[2019-08-05 09:04] LABS: MEAN CORPUSCULAR HEMOGLOBIN 28.3 pg (27.0-33.4); MEAN CORPUSCULAR HGB CONC 33.4 g/dL (32.0-36.0); MEAN CORPUSCULAR VOLUME 85 fl (80-97); PLATELET COUNT 136 10^3/uL (150-450); RED BLOOD COUNT 3.54 10^6/uL (3.72-5.28); RED CELL DISTRIBUTION WIDTH 16.4 % (11.5-14.0)
[2019-08-05] MEDS: DOCUSATE SODIUM 100 MG CAPSULE PO SCH ×2 (10:20→18:00)
[2019-08-05] MEDS: PRENATAL VITAMIN W DHA CAPSULE PO SCH (10:20)
[2019-08-05] MEDS: FAMOTIDINE 20 MG TABLET PO SCH ×2 (10:20→21:19)
[2019-08-05] MEDS: SENNOSIDES/DOCUSATE 8.6-50 MG 1 EACH TABLET PO SCH (10:20)
[2019-08-05] MEDS: FERROUS SULFATE 325 MG TABLET PO SCH ×2 (10:20→18:00)
--- NOTE | 2019-08-05 11:19 | PDOC PROGRESS REPORT ---
Subjective-OB Progress Note for:: 08/05/19 Subjective: reports bleeding slowing, pain controlled with current meds. denies needs. Physical Exam (OB) Vital Signs: Temp Pulse Resp BP Pulse Ox 98.1 F 62 16 112/60 98 08/05/19 07:49 08/05/19 07:49 08/05/19 07:49 08/05/19 07:49 08/05/19 07:49 Intake & Output 08/04/19 08/05/19 08/06/19 06:59 06:59 06:59 Intake Total 600 Balance 600 Weight 69.7 kg - Abdomen Description: Soft Hernia Present: No Fundal Description: Firm, Midline Fundal Height: u/u - u/2 - Abdominal Distension: No distension Tenderness: Nontender - Extremities Lower extremities: Vijay's sign - neg Calf: Normal, Nontender Objective-Diagnostic Laboratory: 08/05/19 08:26 08/05/19 08:26 WBC 8.0 RBC 3.54 L Hgb 10.0 L Hct 30.0 L MCV 85 MCH 28.3 MCHC 33.4 RDW 16.4 H Plt Count 136 L Assessment and Plan(PN) - Time Spent with Patient Time with patient: Less than 15 minutes Medications reviewed and adjusted accordingly: Yes - Disposition Anticipated Discharge: Home Within: within 24 hours
[2019-08-06] MEDS: IBUPROFEN 800 MG TABLET PO SCH (05:30)
[2019-08-06 08:07] VITALS: BP 112/62
--- NOTE | 2019-08-06 09:08 | PDOC DISCHARGE SUMMARY ---
Impression - Admit/DC Date/PCP Admission Date/Primary Care Provider: 08/04/19 06:05 CHRISTIAN CRUZ MD Discharge Date: 08/06/19 - Discharge Diagnosis (1) Anemia complicating , third trimester Is this a current diagnosis for this admission?: Yes (2) Rh negative, maternal Is this a current diagnosis for this admission?: Yes (3) Anemia due to acute blood loss Is this a current diagnosis for this admission?: Yes (4) GBS (group B Streptococcus carrier), +RV culture, currently Is this a current diagnosis for this admission?: Yes (5) Normal vaginal delivery Is this a current diagnosis for this admission?: Yes - Additional Information Resuscitation Status: Full Code Discharge Diet: Regular Discharge Activity: Balance Activity w/Rest, Pelvic Rest Referrals: CHRISTIAN CRUZ MD [Primary Care Provider] - Home Medications: Vitamin [-U Multiple Vitamin Capsule] 1 cap PO DAILY 07/28/19 HPI Gestational Age: 41.6 Reason(s) for Admission: Induction of Labor Procedures: NST Intrapartum Procedure(s): Spontaneous Vaginal Delivery Results Laboratory Results: WBC 8.0 10^3/uL (4.0-10.5) 08/05/19 08:26 RBC 3.54 10^6/uL (3.72-5.28) L 08/05/19 08:26 Hgb 10.0 g/dL (12.0-15.5) L 08/05/19 08:26 Hct 30.0 % (36.0-47.0) L 08/05/19 08:26 MCV 85 fl (80-97) 08/05/19 08:26 MCH 28.3 pg (27.0-33.4) 08/05/19 08:26 MCHC 33.4 g/dL (32.0-36.0) 08/05/19 08:26 RDW 16.4 % (11.5-14.0) H 08/05/19 08:26 Plt Count 136 10^3/uL (150-450) L 08/05/19 08:26 Lymph % (Auto) 33.0 % (13-45) 08/04/19 06:36 [place] % (Auto) 7.2 % (3-13) 08/04/19 06:36 Eos % (Auto) 2.7 % (0-6) 08/04/19 06:36 Baso % (Auto) 0.7 % (0-2) 08/04/19 06:36 Absolute Neuts (auto) 3.5 10^3/uL (1.7-8.2) 08/04/19 06:36 Absolute Lymphs (auto) 2.1 10^3/uL (0.5-4.7) 08/04/19 06:36 Absolute Monos (auto) 0.5 10^3/uL (0.1-1.4) 08/04/19 06:36 Absolute Eos (auto) 0.2 10^3/uL (0.0-0.6) 08/04/19 06:36 Absolute Basos (auto) 0.0 10^3/uL (0.0-0.2) 08/04/19 06:36 Seg Neutrophils % 56.4 % (42-78) 08/04/19 06:36 Urine Color YELLOW 08/04/19 06:15 Urine Appearance CLEAR 08/04/19 06:15 Urine pH 7.0 (5.0-9.0) 08/04/19 06:15 Ur Specific [place] 1.009 08/04/19 06:15 Urine Protein NEGATIVE mg/dL (NEGATIVE) 08/04/19 06:15 Urine Glucose (UA) NEGATIVE mg/dL (NEGATIVE) 08/04/19 06:15 Urine Ketones NEGATIVE mg/dL (NEGATIVE) 08/04/19 06:15 Urine Blood NEGATIVE (NEGATIVE) 08/04/19 06:15 Urine Nitrite NEGATIVE (NEGATIVE) 08/04/19 06:15 Urine Bilirubin NEGATIVE (NEGATIVE) 08/04/19 06:15 Urine Urobilinogen NEGATIVE mg/dL (<2.0) 08/04/19 06:15 Ur Leukocyte Esterase NEGATIVE (NEGATIVE) 08/04/19 06:15 Urine Ascorbic Acid NEGATIVE (NEGATIVE) 08/04/19 06:15 Urine Opiates Screen NEGATIVE 08/04/19 06:15 Urine Methadone Screen NEGATIVE 08/04/19 06:15 Ur Barbiturates Screen NEGATIVE 08/04/19 06:15 Ur Phencyclidine Scrn NEGATIVE 08/04/19 06:15 Ur Amphetamines Screen NEGATIVE 08/04/19 06:15 U Benzodiazepines Scrn NEGATIVE 08/04/19 06:15 Urine Cocaine Screen NEGATIVE 08/04/19 06:15 U Marijuana (THC) Screen NEGATIVE 08/04/19 06:15 RPR NONREACTIVE (NONREACTIVE) 08/04/19 06:36 Blood Type O NEGATIVE 08/04/19 06:36 Antibody Screen POSITIVE 08/04/19 06:36 Antibody Identification RHOGAM INDUCED ANTI-D 08/04/19 06:36 Plan Plan of Treatment: f/u at [facility] 4 wks Time Spent: Less than 30 Minutes
[2019-08-06] MEDS: DOCUSATE SODIUM 100 MG CAPSULE PO SCH (09:57)
[2019-08-06] MEDS: FERROUS SULFATE 325 MG TABLET PO SCH (09:58)
[2019-08-06] MEDS: FAMOTIDINE 20 MG TABLET PO SCH (09:58)
[2019-08-06] MEDS: PRENATAL VITAMIN W DHA CAPSULE PO SCH (09:58)
[2019-08-06] MEDS: SENNOSIDES/DOCUSATE 8.6-50 MG 1 EACH TABLET PO SCH (09:58)
== END 2019-08-06 13:13 | disposition home or self-care (01) | DRG 806 ==
LOC: LR 06:05 → 2S 17:22
PROVIDERS: ADMIT Obstetrics & Gynecology; ATTEND Obstetrics & Gynecology
PROC: 10E0XZZ Delivery of Products of Conception, External Approach (ICD-10-PCS; principal; 2019-08-04)
PROC: 10907ZC Drainage of Amniotic Fluid, Therapeutic from Products of Conception, Via Natural or Artificial Opening (ICD-10-PCS; 2019-08-04)
DX: O48.0 Post-term pregnancy (principal); D62 Acute posthemorrhagic anemia; Z37.0 Single live birth; O99.824 Streptococcus B carrier state complicating childbirth; O99.03 Anemia complicating the puerperium; O69.1XX0 Labor and delivery complicated by cord around neck, with compression, not applicable or unspecified; Z3A.41 41 weeks gestation of pregnancy; Z87.891 Personal history of nicotine dependence
CPT/HCPCS: 1967; 36415; 80307; 81005; 85025; 85027; 86592; 86850; 86870; 86900; 86901; 90715; 94760; J2540; J2590; J3010; J3490; J7060